=== PATIENT | male | born 1950 | race American Indian/Alaskan Native ===

== ENCOUNTER 2022-04-05 18:40 | Inpatient (IN) | payer OTHER ==
[~2022-04-05] VITALS: Ht 180.3 cm; Wt 60.2 kg
[2022-04-05 19:28] LABS: Hematocrit 48.3 % (37.0-53.0); Hemoglobin 16.4 g/dL (13.5-17.5); Mean Corpuscular HGB 30.9 pg (26.0-34.0); Mean Corpuscular Volume 91 fL (80-100); Mean Platelet Volume 9.3 fL (9.1-12.4); Platelet Count 468 K/mm3 (150-400); RDW Coefficient Variation 14.9 % (11.7-14.2); RDW Standard Deviation 49.2 fL (35.1-46.3); Red Blood Cell Count 5.31 M/mm3 (4.30-5.90); White Blood Cell Count 26.39 K/mm3 (4.00-11.30)
[2022-04-05 19:46] LABS: Albumin, Blood 3.7 g/dL (3.4-5.0); Bilirubin, Total 2.6 mg/dL (0.1-1.0); Bun/Creatinine Ratio 39.6 (12.0-20.0); Calcium, Blood 9.3 mg/dL (8.5-10.1); Creatinine, Blood 1.34 mg/dL (0.60-1.20); Globulin, Blood 3.7 g/dL (2.2-4.0); Potassium, Blood 4.1 mmol/L (3.5-5.5); Total Protein, Blood 7.4 g/dL (6.4-8.2)
[2022-04-05 20:05] LABS: BAND PERCENT MAN 37 % (0-8); BASOPHILS PERCENT MAN 0 % (0-2); EOSINOPHILS PERCENT MAN 0 % (0-6); LYMPHOCYTES ABSOLUTE MAN 1.58 K/mm3 (0.84-5.20); LYMPHOCYTES PERCENT MAN 6 % (21-46); MONOCYTES ABSOLUTE MAN 1.84 K/mm3 (0.16-1.47); MONOCYTES PERCENT MAN 7 % (4-13); NEUTROPHILS ABSOLUTE MAN 22.95 K/mm3 (1.96-9.15); SEG NEUTROPHILS PERCENT MAN 50 % (41-73); TOTAL CELLS COUNTED 100
[2022-04-05 20:38] LABS: Magnesium, Blood 2.2 mg/dL (1.6-2.4)
[2022-04-06 01:35] LABS: Influenza A, PCR NEGATIVE (NEGATIVE); Influenza B, PCR NEGATIVE (NEGATIVE); Resp Syncytial Virus, PCR NEGATIVE (NEGATIVE); SARS-Cov-2 (COVID-19) PCR, MMC NEGATIVE (NEGATIVE)
[2022-04-06] MEDS ORDERED: NEURONTIN600 MG PO (02:43)
[2022-04-06 04:47] LABS: BASOPHILS ABSOLUTE AUTO 0.03 K/mm3 (0.00-0.23); BASOPHILS PERCENT AUTO 0 % (0-2); EOSINOPHILS ABSOLUTE AUTO 0.06 K/mm3 (0.00-0.68); EOSINOPHILS PERCENT AUTO 0 % (0-6); Hematocrit 39.5 % (37.0-53.0); Hemoglobin 13.4 g/dL (13.5-17.5); IMMATURE GRAN ABSOLUTE AUTO 0.13 K/mm3 (0.00-0.10); IMMATURE GRAN PERCENT AUTO 1 % (0-1); LYMPHOCYTES ABSOLUTE AUTO 1.79 K/mm3 (0.84-5.20); LYMPHOCYTES PERCENT AUTO 7 % (21-46); MONOCYTES ABSOLUTE AUTO 2.31 K/mm3 (0.16-1.47); MONOCYTES PERCENT AUTO 10 % (4-13); Mean Corpuscular HGB 30.6 pg (26.0-34.0); Mean Corpuscular HGB Conc 33.9 g/dL (31.5-36.5); Mean Corpuscular Volume 90 fL (80-100); Mean Platelet Volume 9.4 fL (9.1-12.4); NEUTROPHILS ABSOLUTE AUTO 19.98 K/mm3 (1.96-9.15); NEUTROPHILS PERCENT AUTO 82 % (41-73); Platelet Count 400 K/mm3 (150-400); RDW Coefficient Variation 14.8 % (11.7-14.2); RDW Standard Deviation 49.3 fL (35.1-46.3); Red Blood Cell Count 4.38 M/mm3 (4.30-5.90)
[2022-04-06 05:16] LABS: Albumin, Blood 2.9 g/dL (3.4-5.0); Albumin/Globulin Ratio 1.1 (0.8-1.8); Bilirubin, Total 1.5 mg/dL (0.1-1.0); Bun/Creatinine Ratio 46.2 (12.0-20.0); Calcium, Blood 7.9 mg/dL (8.5-10.1); Creatinine, Blood 0.69 mg/dL (0.60-1.20); Globulin, Blood 2.7 g/dL (2.2-4.0); Potassium, Blood 3.5 mmol/L (3.5-5.5); Total Protein, Blood 5.6 g/dL (6.4-8.2)
--- NOTE | 2022-04-06 16:52 | NUR ---
SHIFT SUMMARY PATIENT NEURO REMAINS INTACT. PATIENT HAS COMPLAINED OF ABD PAIN OFF AND ON THROUGHOUT THE DAY. MEDICATED PER EMAR. SEE EMAR. PATIENT HAS SLEPT OFF AND ON THROUGHOUT THE DAY. PATIENT IS MEDICAL STATUS NO TELE. PATIENT IS IN NO DISTRESS. VERY MINIMAL INTAKE. NO ACUTE CHANGES THIS SHIFT. CALL LIGHT WITHIN REACH AND BED IN LOWEST POSITION. PLAN OF CARE UP TO DATE.
--- NOTE | 2022-04-06 17:30 | NUR ---
UPDATE TO FAMILY THIS RN WAS UNABLE TO TALK TO THE PATIENTS DAUGHTER WHEN SHE CALLED, NABIL IS HER NAME. THE NUMBER THAT WAS WRITTEN DOWN IS THE SAME NUMBER THAT MATCHES IN THE CHART. THIS RN TRIED TO CALL IT AND SO DID [employer] AND THE NUMBER WOULD NOT GO THROUGH. IT JUST WAS A DIAL TONE. THIS RN TRIED TO CALL THE CAREGIVER NUMBER LISTED AND IT WENT STRAIGHT TO [employer]. THIS RN ASKED THE PATIENT IF HE COULD REMEMBER THE DAUGHTERS PHONE NUMBER AND PATIENT STATED HE DOES NOT AND HE DOESN'T HAVE HIS CELL PHONE WITH HIM. HOPEFULLY DAUGHTER WILL CALL BACK AND WILL BE ABLE TO GET AN UPDATE AND A GOOD NUMBER. WILL INFORM ONCOMING RN OF THIS.
--- NOTE | 2022-04-06 18:07 | NUR ---
UPDATE TO FAMILY THIS RN WAS ABLE TO GIVE AN UPDATE TO THE PATIENT CARETGIVER JB. HE CALLED THE UNIT. JB IS GIVING THE DAUGHTER AN UPDATE BECAUSE THEY ALL LIVE TOGETHER.
[2022-04-07 04:52] LABS: BASOPHILS ABSOLUTE AUTO 0.03 K/mm3 (0.00-0.23); BASOPHILS PERCENT AUTO 0 % (0-2); EOSINOPHILS ABSOLUTE AUTO 0.02 K/mm3 (0.00-0.68); EOSINOPHILS PERCENT AUTO 0 % (0-6); Hemoglobin 12.3 g/dL (13.5-17.5); IMMATURE GRAN ABSOLUTE AUTO 0.06 K/mm3 (0.00-0.10); IMMATURE GRAN PERCENT AUTO 0 % (0-1); LYMPHOCYTES ABSOLUTE AUTO 1.92 K/mm3 (0.84-5.20); LYMPHOCYTES PERCENT AUTO 14 % (21-46); MONOCYTES ABSOLUTE AUTO 1.71 K/mm3 (0.16-1.47); MONOCYTES PERCENT AUTO 12 % (4-13); Mean Corpuscular HGB 30.7 pg (26.0-34.0); Mean Corpuscular HGB Conc 33.2 g/dL (31.5-36.5); Mean Corpuscular Volume 92 fL (80-100); Mean Platelet Volume 9.3 fL (9.1-12.4); NEUTROPHILS ABSOLUTE AUTO 10.16 K/mm3 (1.96-9.15); NEUTROPHILS PERCENT AUTO 73 % (41-73); Platelet Count 383 K/mm3 (150-400); RDW Coefficient Variation 15.2 % (11.7-14.2); RDW Standard Deviation 51.3 fL (35.1-46.3); Red Blood Cell Count 4.01 M/mm3 (4.30-5.90)
[2022-04-07 05:04] LABS: Albumin, Blood 2.9 g/dL (3.4-5.0); Albumin/Globulin Ratio 1.1 (0.8-1.8); Bilirubin, Total 1.2 mg/dL (0.1-1.0); Bun/Creatinine Ratio 26.1 (12.0-20.0); Calcium, Blood 8.3 mg/dL (8.5-10.1); Creatinine, Blood 0.58 mg/dL (0.60-1.20); Globulin, Blood 2.6 g/dL (2.2-4.0); Potassium, Blood 3.7 mmol/L (3.5-5.5); Total Protein, Blood 5.5 g/dL (6.4-8.2)
--- NOTE | 2022-04-07 06:14 | NUR ---
SHIFT SUMMARY PT. HAS RESTED WELL THROUGHOUT THE NIGHT, DESPITE A BIT OF NAUSEA EARLY ON. PT. STILL SATTING WELL ON RA AND HAS BEEN SLIGHTLY HYPERTINSIVE THROUGHOUT THE NIGHT TO A SYSTOLIC OF 167. PT. WAS NOT IN PAIN MUCH DURING THE DAY AND WAS ABLE TO REST THROUGH THE NIGHT WITH NO PRNS. PT. ABLE TO USE URINAL AND IS ABLE TO USE CALL LIGHT WHEN APPROPRIATE. PT. RESTING COMFORTABLY AT THIS TIME.
[2022-04-07 11:58] LABS: Source, Urine Clean Catch
--- NOTE | 2022-04-07 12:12 | NUR ---
0800 TO NOON ASSESSMENT AND TREATMENT PATIENT WAS RESTING WELL UPON ENTRY TO ROOM THIS AM. HIS VITAL SIGNS HAVE BEEN STABLE. HE HAS A TKO NS GOING TO RIGHT FA IV. HIS LEFT AC IV IS POSITIONAL ON FLUSHING AND IS SALINE LOCKED. PATIENT APPEARS DEJECTED AND CURIOUS WHEN WE ARE DISCHARGING HIM. HE HAS BEEN EDUCATED ON HIS DISEASE PROCESS AND TOLD OF HIS TREATMENT PLAN WITH FLUIDS, ANTIBIOTICS. SENT URINE FOR A UA SINCE HE COMPLAINS OF BURNING SENSATION WHEN URINATING. HE HAS GOOD MOBILITY WALKING TO THE BATHROOM THIS AM BUT IS NOT MOTIVATED TO DO ANY EXTRA MOVING ON HIS OWN IN THE ROOM. HE DID GET TORADOL AND TYLENOL FOR PAIN THAT HE IS HAVING TO HIS ABDOMEN THIS AM. NEXT DOSE TO GIVE IS 1400 IF HE NEEDS MORE. PT WORKING WITH HIM CURRENTLY AT NOON. HE IS NOT MOTIVATED TO EAT MUCH FOOD TODAY EITHER. HE STATED HIS FAMILY IS TO FAR AWAY TO COME VISIT HIM. WILL CONTINUE TO ENCOURAGE MOVEMENT, FOOD INTAKE AND PAIN CONTROL.
[2022-04-07 12:45] LABS: Appearance, Urine Clear (Clear); Bilirubin, Urine Neg (Neg); Blood, Urine 1+ (Neg); Color, Urine Yellow (P-Yellow); Glucose Qualitative, Urine Neg (Neg); Ketones, Urine 3+ (Neg); Leukocyte Esterase, Urine Neg (Neg); Nitrite, Urine Neg (Neg); Protein, Urine 1+ (Neg); Specific Gravity, Urine 1.015 (1.003-1.022); Urobilinogen, Urine NORM (Normal)
[2022-04-07 13:42] LABS: Bacteria Not Seen /hpf; Red Blood Cells, Urine 0-2 /hpf (0-2); Squamous Epithelial Cells Not Seen /hpf (Few); White Blood Cells, Urine 0-2 /hpf (0-5)
--- NOTE | 2022-04-07 16:49 | NUR ---
PROGRESS NOTE PATIENT HAS BEEN UP TO BATHROOM AND SAT IN CHAIR TODAY FOR A LITTLE BIT. HE HAD A CONVERSATION WITH THE DOCTOR ABOUT HIS HISTORY THAT STARTED 3 MONTHS AGO ABOUT GETTING EVICTED FROM HIS HOME IN A QUICK MANOR AND HAVING NO PLACE TO GO FOR A WHILE. HE LIVES [place] C[place]IVER [place] IN A DOUBLE WIDE TRAILER WITH MULTIPLE DOGS. HE IS EAGER TO GET BACK HOME TO SEE HIS DOG BUT WANTS TO BE TREATED HOWEVER HE NEEDS TO BE TO GET BETTER TOO. DOCTOR DISCUSSED ANTIDEPRESSENTS FOR HIM, SEE MAR FOR NEW MEDICATION. VS HAVE BEEN OTHERWISE STABLE. HE IS ENCOURAGED TO EAT AND HIS DIET IS ADVANCED TO REGULAR NOW. HIS STOOLS ARE STILL HARD SO FLUIDS ARE ALSO ENCOURAGED. MOVING PATIENT TO MEDICAL FLOOR FROM PCU. WILL GIVE REPORT AND TRANSFER FOR THEM TO RESUME CARE.
--- NOTE | 2022-04-07 18:37 | NUR ---
PT TRANSFERED FROM PCU. REPORT TAKEN. PT ARRIVED IN WHEELCHAIR AND ABLE TO TRANSFER HIMSELF TO THE BED. PT ORIENTED TO ROOM, CALL LIGHT, AND SURROUNDING AREA. CALL LIGHT WITHIN REACH AND ABLE TO CALL APPROPRIATE. IV INTACT AND PATENT. PT ON RA, REGULAR DIET, AND ABLE TO TAKE MEDS WHOLE.
--- NOTE | 2022-04-08 04:06 | NUR ---
SHIFT SUMMARY ADMITTED FOR SEVERE SEPSIS/PNEUMONIA. FULL CODE. IV ANTIB RX ARE SCHEDULED. [facility] PATIENT. PHYSICAL & OCCUPATIONAL THERAPIES ASSISTING. ON RA. A&O X4. TO FOLLOW UP ON LUNG/ADRENAL NODULES OUTPT. LIVES W/ND CAREGIVER. ON REGULAR DIET. STANDBY ASSIST W/FWW - BRP. MEDICATED FOR PAIN ONE TIME THIS SHIFT.
[2022-04-08 04:38] LABS: BASOPHILS ABSOLUTE AUTO 0.04 K/mm3 (0.00-0.23); BASOPHILS PERCENT AUTO 0 % (0-2); EOSINOPHILS ABSOLUTE AUTO 0.13 K/mm3 (0.00-0.68); EOSINOPHILS PERCENT AUTO 1 % (0-6); Hematocrit 35.4 % (37.0-53.0); Hemoglobin 12.3 g/dL (13.5-17.5); IMMATURE GRAN ABSOLUTE AUTO 0.03 K/mm3 (0.00-0.10); IMMATURE GRAN PERCENT AUTO 0 % (0-1); LYMPHOCYTES PERCENT AUTO 20 % (21-46); MONOCYTES ABSOLUTE AUTO 1.66 K/mm3 (0.16-1.47); MONOCYTES PERCENT AUTO 14 % (4-13); Mean Corpuscular HGB 31.1 pg (26.0-34.0); Mean Corpuscular HGB Conc 34.7 g/dL (31.5-36.5); Mean Corpuscular Volume 89 fL (80-100); Mean Platelet Volume 9.1 fL (9.1-12.4); NEUTROPHILS ABSOLUTE AUTO 7.56 K/mm3 (1.96-9.15); NEUTROPHILS PERCENT AUTO 64 % (41-73); Platelet Count 392 K/mm3 (150-400); RDW Coefficient Variation 14.6 % (11.7-14.2); Red Blood Cell Count 3.96 M/mm3 (4.30-5.90); White Blood Cell Count 11.82 K/mm3 (4.00-11.30)
[2022-04-08 04:56] LABS: Albumin/Globulin Ratio 1.1 (0.8-1.8); Bilirubin, Total 1.4 mg/dL (0.1-1.0); Bun/Creatinine Ratio 23.3 (12.0-20.0); Calcium, Blood 8.2 mg/dL (8.5-10.1); Creatinine, Blood 0.56 mg/dL (0.60-1.20); Globulin, Blood 2.7 g/dL (2.2-4.0); Potassium, Blood 3.4 mmol/L (3.5-5.5); Total Protein, Blood 5.7 g/dL (6.4-8.2)
[2022-04-08] MEDS ORDERED: MIRT15 PO (12:58)
[2022-04-08] MEDS ORDERED: ONDA4ODT MM (12:59)
[2022-04-08] MEDS ORDERED: CEFP200 PO (12:59)
--- NOTE | 2022-04-08 18:14 | NUR ---
PT DISCHARGED WITH DC INSTRUCTIONS. WHEEL CHAIR OUT TO PRIVATE CAR TO DRIVE PT HOME. [facility] [place] BELONGINGS SENT WITH PT.
== END 2022-04-08 16:08 | disposition home health service (06) | DRG 871 ==
LOC: ER 18:40 → PCU 04-06 00:24 → MEDS 04-07 17:54
PROVIDERS: Emergency Medicine; Family Medicine; Physician Assistant; Student in an Organized Health Care Education/Training Program; ADMIT Internal Medicine
DX: A41.9 Sepsis, unspecified organism (principal); E43 Unspecified severe protein-calorie malnutrition; J18.9 Pneumonia, unspecified organism; E87.2 Acidosis; R65.20 Severe sepsis without septic shock; R63.4 Abnormal weight loss; K21.9 Gastro-esophageal reflux disease without esophagitis; F17.200 Nicotine dependence, unspecified, uncomplicated; E87.6 Hypokalemia; R91.1 Solitary pulmonary nodule; E27.8 Other specified disorders of adrenal gland; I10 Essential (primary) hypertension; Z68.23 Body mass index [BMI] 23.0-23.9, adult; Z98.890 Other specified postprocedural states
CPT/HCPCS: 0241U; 36415; 71045; 74177; 80053; 81001; 83605; 83690; 83735; 85025; 87040; 93005; 93010; 94760; 96365-59; 96366; 96375; 97110; 97112; 97116; 97162; 97166; 97530; 99285-25; A9270; J0456; J0696; J1650; J1885; J2405; J2543; J7030; J7050; Q9967